=== PATIENT | male | born 1930 | race Caucasian/White ===

== ENCOUNTER 2018-09-08 11:46 | Observation (INO) ==
[2018-09-08] MEDS ORDERED: Sodium Chlor 0.9% Inj 500 ML IV.SIG SCH (12:00)
--- NOTE | 2018-09-08 12:04 | ED ---
HPI General Chief complaint: Diabetic Stated complaint: evac/diabetic Time Seen by Provider: 09/08/18 12:00 Source: patient and EMS Mode of arrival: EMS Limitations: no limitations History of Present Illness HPI narrative: 88-year-old male patient with a history of diabetes currently on insulin, presents to the ER today brought in by EMS after his states that last night his blood sugars dropped to 40 and she had fed him a full meal, and then this morning his blood sugar was over 500, she had given him 8 units of Humalog insulin at 8 AM and she states that the blood sugars are not going down and she was worried. Patient has been complaining on and off intermittently of some dizziness but states that he feels fine currently. He has not been sick, he denies any fevers, vomiting, or any other symptoms. He had eaten a normal full meal for dinner last night. Related Data Home Medications Medication Instructions Recorded Confirmed aliskiren [Tekturna] 150 mg PO DAILY 09/08/18 09/08/18 amlodipine 5 mg PO DAILY 09/08/18 09/08/18 aspirin 325 mg PO DAILY 09/08/18 09/08/18 atorvastatin 80 mg PO DAILY 09/08/18 09/08/18 hydrochlorothiazide 12.5 mg PO DAILY 09/08/18 09/08/18 insulin glargine [Lantus U-100 20 unit SUBCUT DAILY 09/08/18 09/08/18 Insulin] isosorbide dinitrate 20 mg PO BID 09/08/18 09/08/18 lisinopril 40 mg PO DAILY 09/08/18 09/08/18 metoprolol succinate 12.5 mg PO DAILY 09/08/18 09/08/18 pramipexole 4.5 mg PO DAILY 09/08/18 09/08/18 ranitidine HCl 300 mg PO BID 09/08/18 09/08/18 rivastigmine tartrate 6 mg PO BID 09/08/18 09/08/18 Allergies Allergy/AdvReac Type Severity Reaction Status Date / Time No Known Allergies Allergy Verified 09/08/18 13:01 Review of Systems ROS: all other systems reviewed are negative PMFSH History History Provided By: Patient Medical History Medical History Diabetes (Acute) Hypertension (Acute) GERD (gastroesophageal reflux disease) (Acute) Surgical History Surgical History History of heart artery stent (Acute) Social History Social History Smoking Status: Never smoker How Often Do You Have a Drink Containing Alcohol: Never Recent Travel in [facility] within the Last 8 Weeks: No Recent Out of Country Travel within the Last 8 Weeks: No Exam Narrative Exam Narrative: GENERAL: Well-developed elderly male patient currently in mild distress. Awake and oriented x3. SKIN: Focused skin assessment warm/dry. HEAD: Atraumatic. Normocephalic. EYES: Pupils equal and round. No scleral icterus. No injection or drainage. ENT: No nasal bleeding or discharge. Mucous membranes pink and moist. NECK: Trachea midline. No JVD. CARDIOVASCULAR: Regular rate and rhythm. No murmur appreciated. RESPIRATORY: No accessory muscle use. Clear to auscultation. Breath sounds equal bilaterally. GASTROINTESTINAL: Abdomen soft, non-tender, nondistended. Hepatic and splenic margins not palpable. MUSCULOSKELETAL: No obvious deformities. No clubbing. No cyanosis. No edema. NEUROLOGICAL: Awake and alert. No obvious cranial nerve deficits. Motor grossly within normal limits. Normal speech. No pronator drift. PSYCHIATRIC: Appropriate mood and affect; insight and judgment normal. Course Initial Documented Vital Signs Temperature 97.7 F 09/08/18 11:53 Pulse Rate 83 09/08/18 11:53 Respiratory Rate 20 09/08/18 11:53 Blood Pressure 164/72 H 09/08/18 11:53 Pulse Oximetry 95 09/08/18 11:53 Last Documented Vital Signs Temperature 97.7 F 09/08/18 11:53 Pulse Rate 70 09/08/18 13:30 Respiratory Rate 16 09/08/18 13:30 Blood Pressure 137/57 L 09/08/18 13:30 Pulse Oximetry 97 09/08/18 13:30 Medical Decision Making MDM Narrative Medical decision making narrative: Patient's lab work is showing some mild increase and creatinine, possibly secondary to dehydration. He had been given 500 cc of IV fluids and p.o. fluids as well in the ER. His glucose level is 650 and IV insulin was given as well. Troponins returned mildly elevated. Patient is not having chest pains. EKG does show a left bundle branch block with some ST depressions and 2 and lateral leads. No ST elevations were identified. And at this point, my plan would be to admit the patient for further evaluation. Case is discussed with Dr. Rosario for admission. I was able to talk to Dr. Delong at 2 PM, and he states that he will see the patient and leave a consult note. At this point, he would not add anything further. Medical Screen Exam Complete: Yes Emergency Medical Condition: Yes Differential Diagnosis Differential Diagnosis: Overmedication versus dehydration versus renal clearance issues Lab Data Lab results reviewed: Yes I reviewed the patient's lab results. Result diagrams: 09/08/18 12:16 09/08/18 12:16 Lab Results 09/08/18 09/08/18 09/08/18 Range/Units 11:59 12:16 12:16 CBC w Diff Auto diff final WBC 12.0 H (4.0-11.0) th/mm3 RBC 4.31 L (4.50-5.90) mil/mm3 Hgb 13.9 (13.0-17.0) gm/dL Hct 41.4 (39.0-51.0) % MCV 96.1 (80.0-100.0) fL MCH 32.3 (27.0-34.0) pg MCHC 33.6 (32.0-36.0) % RDW 12.6 (11.6-17.2) % Plt Count 155 (150-450) th/mm3 MPV 10.0 (7.0-11.0) fL Neut % (Auto) 85.2 H (16.0-70.0) % Lymph % (Auto) 5.9 L (9.0-44.0) % Baker % (Auto) 7.9 (0.0-8.0) % Eos % (Auto) 0.1 (0.0-4.0) % Baso % (Auto) 0.9 (0.0-2.0) % Neut # (Auto) 10.2 H (1.8-7.7) th/mm3 Lymph # (Auto) 0.7 L (1.0-4.8) th/mm3 Baker # (Auto) 1.0 H (0.0-0.9) th/mm3 Eos # (Auto) 0.0 (0.0-0.4) th/mm3 Baso # (Auto) 0.1 (0.0-0.2) th/mm3 WBC Differential . Differential Comment . Sodium 136 (136-145) meq/L Potassium 4.7 (3.5-5.1) meq/L Chloride 102 (98-107) meq/L Carbon Dioxide 21.8 (21.0-32.0) meq/L Anion Gap 12 (5-15) meq/L BUN 39 H (7-18) mg/dL Creatinine 1.60 H (0.60-1.30) mg/dL Estimated GFR 41 L (>89) mL/min POC Glucose Greater than 600 H* (68-110) mg/dl Random Glucose 654 H* (74-106) mg/dL Calcium 8.2 L (8.5-10.1) mg/dL Total Bilirubin 0.5 (0.2-1.0) mg/dL AST 15 (15-37) U/L ALT 20 (12-78) U/L Alkaline Phosphatase 72 (45-117) U/L Troponin I 0.18 H (0.02-0.05) ng/mL Total Protein 6.7 (6.4-8.2) g/dL Albumin 3.5 (3.4-5.0) g/dL Ur Collection Type Urine Color (Yellw/Straw) Urine Clarity (Clear) Urine pH (5.0-8.5) Ur Specific [place] (1.002-1.035) Urine Protein (Neg-Trace) mg/dL Urine Glucose (UA) (Negative) mg/dL Urine Ketones (Negative) mg/dL Urine Occult Blood (Negative) Urine Nitrate (Negative) Urine Bilirubin (Negative) Urine Urobilinogen (Less than 2) mg/dL Ur Leukocyte Esterase (Negative) Urine RBC (0-3) /hpf Ur Squamous Epith Cells (0-5) /hpf Micro UA Comment Ur Microscopic Review Urine Culture Comments 09/08/18 09/08/18 Range/Units 12:29 13:29 CBC w Diff WBC (4.0-11.0) th/mm3 RBC (4.50-5.90) mil/mm3 Hgb (13.0-17.0) gm/dL Hct (39.0-51.0) % MCV (80.0-100.0) fL MCH (27.0-34.0) pg MCHC (32.0-36.0) % RDW (11.6-17.2) % Plt Count (150-450) th/mm3 MPV (7.0-11.0) fL Neut % (Auto) (16.0-70.0) % Lymph % (Auto) (9.0-44.0) % Baker % (Auto) (0.0-8.0) % Eos % (Auto) (0.0-4.0) % Baso % (Auto) (0.0-2.0) % Neut # (Auto) (1.8-7.7) th/mm3 Lymph # (Auto) (1.0-4.8) th/mm3 Baker # (Auto) (0.0-0.9) th/mm3 Eos # (Auto) (0.0-0.4) th/mm3 Baso # (Auto) (0.0-0.2) th/mm3 WBC Differential Differential Comment Sodium (136-145) meq/L Potassium (3.5-5.1) meq/L Chloride (98-107) meq/L Carbon Dioxide (21.0-32.0) meq/L Anion Gap (5-15) meq/L BUN (7-18) mg/dL Creatinine (0.60-1.30) mg/dL Estimated GFR (>89) mL/min POC Glucose Greater than 600 H* (68-110) mg/dl Random Glucose (74-106) mg/dL Calcium (8.5-10.1) mg/dL Total Bilirubin (0.2-1.0) mg/dL AST (15-37) U/L ALT (12-78) U/L Alkaline Phosphatase (45-117) U/L Troponin I (0.02-0.05) ng/mL Total Protein (6.4-8.2) g/dL Albumin (3.4-5.0) g/dL Ur Collection Type Clean catch Urine Color Yellow (Yellw/Straw) Urine Clarity Clear (Clear) Urine pH 5.5 (5.0-8.5) Ur Specific [place] Less/equal 1.005 (1.002-1.035) Urine Protein Negative (Neg-Trace) mg/dL Urine Glucose (UA) 1000 or greater H (Negative) mg/dL Urine Ketones Negative (Negative) mg/dL Urine Occult Blood Large H (Negative) Urine Nitrate Negative (Negative) Urine Bilirubin Negative (Negative) Urine Urobilinogen 0.2 (Less than 2) mg/dL Ur Leukocyte Esterase Negative (Negative) Urine RBC 15-50 H (0-3) /hpf Ur Squamous Epith Cells 0-5 (0-5) /hpf Micro UA Comment Culture not ind Ur Microscopic Review Microscopic reviewed Urine Culture Comments Culture not ind ECG Data Attestation: I personally reviewed and interpreted this ECG as follows: Interpretation: EKG shows a sinus rhythm with a left bundle branch block with frequent PVCs, ventricular rate at 70 bpm. There are notable ST depressions in 2, V5 through V6. No signs of acute ST elevations. Discharge Plan Discharge Disposition Patient Disposition: 30 Still Patient Discharge Condition Condition: Stable Discharge Details Anticipated Discharge Date: 09/08/18 Diagnosis: Elevated troponin, Hyperglycemia Physicians Team ED Provider: Juliocesar Flores Primary Care Provider: Grover Green Attending Provider: Celso Rosario Status ED Status: Left Department Discharge Information Discharge Date/Time: 09/08/18 13:35
[2018-09-08 12:24] LABS: Baso # (Auto) 0.1 th/mm3 (0.0-0.2); Baso % (Auto) 0.9 % (0.0-2.0); Eos % (Auto) 0.1 % (0.0-4.0); Hematocrit 41.4 % (39.0-51.0); Hemoglobin 13.9 gm/dL (13.0-17.0); Lymph # (Auto) 0.7 th/mm3 (1.0-4.8); Lymph % (Auto) 5.9 % (9.0-44.0); Mean Corpuscular HGB Conc 33.6 % (32.0-36.0); Mean Corpuscular Hemoglobin 32.3 pg (27.0-34.0); Mean Corpuscular Volume 96.1 fL (80.0-100.0); Mono % (Auto) 7.9 % (0.0-8.0); Neut # (Auto) 10.2 th/mm3 (1.8-7.7); Neut % (Auto) 85.2 % (16.0-70.0); Platelet Count 155 th/mm3 (150-450); Red Blood Count 4.31 mil/mm3 (4.50-5.90); Red Cell Distribution Width 12.6 % (11.6-17.2)
[2018-09-08 12:37] LABS: Chloride 102 meq/L (98-107); Potassium 4.7 meq/L (3.5-5.1); Sodium 136 meq/L (136-145)
[2018-09-08 12:40] LABS: Albumin 3.5 g/dL (3.4-5.0); Anion Gap 12 meq/L (5-15); Calcium 8.2 mg/dL (8.5-10.1); Carbon Dioxide 21.8 meq/L (21.0-32.0)
[2018-09-08 12:40] LABS: Bilirubin,Urine Negative (Negative); Clarity,Urine Clear (Clear); Color,Urine Yellow (Yellw/Straw); Leukocyte Esterase,Urine Negative (Negative); Nitrite,Urine Negative (Negative); PH,Urine 5.5 (5.0-8.5); Specific Gravity,Urine Less/Equal 1.005 (1.002-1.035); Urobilinogen,Urine 0.2 mg/dL (Less than 2)
[2018-09-08 12:41] LABS: Blood Urea Nitrogen 39 mg/dL (7-18)
[2018-09-08 12:43] LABS: Alanine Aminotransferase 20 U/L (12-78)
[2018-09-08 12:44] LABS: Aspartate Aminotransferase 15 U/L (15-37); Glomerular Filtration Rate 41 mL/min (>89)
[2018-09-08 12:45] LABS: Total Protein 6.7 g/dL (6.4-8.2)
[2018-09-08 12:51] LABS: Squamous Epithelial Cell,Urine 0-5 /hpf (0-5)
[2018-09-08 12:53] LABS: Alkaline Phosphatase 72 U/L (45-117); Troponin I 0.18 ng/mL (0.02-0.05)
[2018-09-08 12:54] LABS: Glucose,Random 654 mg/dL (74-106)
[2018-09-08] MEDS ORDERED: Acetaminophen 325 MG Tablet PO PRN (14:03)
[2018-09-08] MEDS ORDERED: Dextrose 50% in Water 50 ML Vial IV.PUSH PRN (14:10)
--- NOTE | 2018-09-08 15:15 | P.HP ---
History of Present Illness Primary Care Physician: Grover Green MD Chief Complaint: Labile Blood glucose History of Present Illness: 88-year-old male for past medical history of diabetes type 2 came to the ED for evaluation of labile blood glucose. Apparently, patient has a blood glucose reading of 40 for which he was given full crackers, orange juice. However this a.m. when patient awoke, a blood glucose read over 500 and was treated with 8 units of Humalog at 8 AM and decision was made to bring patient to the ED secondary to intermittent dizziness. Per patient's , he may have mistakenly taken his Basal insulin instead of his short acting last night. While in the ED, patient was found to have elevated cardiac enzyme however he denies any chest pain or shortness of breath. 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 Denies any GI bleed. - Diagnosis (1) Elevated troponin (2) Hyperglycemia Review of Systems All other systems reviewed negative except as [facility] - History History Provided By: Patient - Medical History Medical History: Medical History (Last Updated 09/08/18 @ 12:23 by Collins Dukes RN) Diabetes Hypertension GERD (gastroesophageal reflux disease) - Surgical History Surgical History: Surgical History (Last Reviewed 09/08/18 @ 12:03 by Juliocesar Flores MD) History of heart artery stent - Family History Family History: Family History (Last Updated 09/08/18 @ 15:11 by Celso Rosario MD) Other Heart disease - Tobacco History Smoking Status: Never smoker - Alcohol History How Often Do You Have a Drink Containing Alcohol: Never - Travel History Recent Travel in the [place] Within the Last 8 Weeks: No Recent Travel Out of the Country Within the Last 8 Weeks: No - Immunization History Tetanus Immunization: Unsure Medications and Allergies Active Medications: Active Medications Acetaminophen (Tylenol) 650 mg PO Q4H PRN PRN Reason: Temp > 100.4 Al Hydroxide/Mg Hydroxide (Milk Of Radha Liq) 30 ml PO Q12H PRN PRN Reason: Mild Constipation Aliskiren (Tekturna) 150 mg PO DAILY [facility] Amlodipine Besylate (Norvasc) 5 mg PO DAILY [facility] Aspirin (Aspirin) 325 mg PO DAILY [facility] Atorvastatin Calcium (Lipitor) 80 mg PO DAILY [facility] Dextrose (D50w Vial) 50 ml IV.PUSH UNSCH PRN PRN Reason: PER HYPOGLYCEMIA PROTOCOL Glucagon (Glucagon Inj) 1 mg OTHER PRN PRN PRN Reason: for Hypoglycemia Protocol Sodium Chloride (Ns Inj) 500 mls @ 0 mls/hr IV.SIG BOLUS JAZIEL Last Infusion: 09/08/18 13:31 Dose: Infused Sodium Chloride (1/2 Normal Saline Inj) 1,000 mls @ 75 mls/hr IV.CONT .[id number] [facility] Insulin Aspart (Novolog Insulin Correctional Sugar Inj) 0 unit SQ ACHS [facility]; Protocol Insulin Detemir (Levemir Inj) 20 unit SQ DAILY [facility] Isosorbide Dinitrate (Isordil) 20 mg PO BID [facility] Metoprolol Succinate (Toprol Xl) 12.5 mg PO DAILY [facility] Ondansetron HCl (Zofran Inj) 4 mg IV.PUSH Q6H PRN PRN Reason: NAUSEA OR VOMITING Patient Own: ( Pramipexole E.R. [ Pramipexole] 4.5 Mg Tab) 0 each PO DAILY [facility] Patient Own: ( Rivastigmine Tartrate [ Rivastigmine Tartrate] 6 Mg) 0 each PO BID [facility] Sodium Chloride (Ns Flush) 2 ml IV.FLUSH PRN PRN PRN Reason: FLUSH AFTER USING IV ACCESS Allergies Allergy/AdvReac Type Severity Reaction Status Date / Time No Known Allergies Allergy Verified 09/08/18 13:01 Home Medications Medication Instructions Recorded Confirmed Type aliskiren [Tekturna] 150 mg PO DAILY 09/08/18 09/08/18 History amlodipine 5 mg PO DAILY 09/08/18 09/08/18 History aspirin 325 mg PO DAILY 09/08/18 09/08/18 History atorvastatin 80 mg PO DAILY 09/08/18 09/08/18 History hydrochlorothiazide 12.5 mg PO DAILY 09/08/18 09/08/18 History insulin glargine [Lantus U-100 20 unit SUBCUT DAILY 09/08/18 09/08/18 History Insulin] isosorbide dinitrate 20 mg PO BID 09/08/18 09/08/18 History lisinopril 40 mg PO DAILY 09/08/18 09/08/18 History metoprolol succinate 12.5 mg PO DAILY 09/08/18 09/08/18 History pramipexole 4.5 mg PO DAILY 09/08/18 09/08/18 History ranitidine HCl 300 mg PO BID 09/08/18 09/08/18 History rivastigmine tartrate 6 mg PO BID 09/08/18 09/08/18 History Exam Vital signs: Vital Signs 09/08/18 11:53 09/08/18 12:55 09/08/18 13:30 Temperature 97.7 F Pulse Rate 83 76 70 Respiratory Rate 20 16 16 Blood Pressure 164/72 H 137/57 L 137/57 L Pulse Oximetry 95 96 97 Intake & Output 09/07/18 09/08/18 09/08/18 18:59 06:59 18:59 Intake Total 500 / 500 Balance 500 / 500 Weight 65.317 kg Intake: IV 500 / 500 NS Inj 500 ML @ Wide Open IV. 500 / 500 SIG BOLUS [facility]AZIEL Rx#:[id number] Narrative: GENERAL: NAD SKIN: Warm and dry. HEAD: Atraumatic. Normocephalic. EYES: Pupils equal and round. No scleral icterus. No injection or drainage. ENT: No nasal bleeding or discharge. Mucous membranes pink and moist. NECK: Trachea midline. No JVD. CARDIOVASCULAR: Regular rate and rhythm. RESPIRATORY: No accessory muscle use. Clear to auscultation. Breath sounds equal bilaterally. GASTROINTESTINAL: Abdomen soft, non-tender, nondistended. Hepatic and splenic margins not palpable. MUSCULOSKELETAL: Extremities without clubbing, cyanosis, or edema. No obvious deformities. NEUROLOGICAL: Awake and alert. No obvious cranial nerve deficits. Motor grossly within normal limits. Five out of 5 muscle strength in the arms and legs. Normal speech. PSYCHIATRIC: Appropriate mood and affect; insight and judgment normal. Results - Labs CBC & Chem 7: 09/08/18 12:16 09/08/18 12:16 Labs: Laboratory Results - last 24 hr 09/08/18 09/08/18 09/08/18 11:59 12:16 12:16 CBC w Diff Auto diff final WBC 12.0 H RBC 4.31 L Hgb 13.9 Hct 41.4 MCV 96.1 MCH 32.3 MCHC 33.6 RDW 12.6 Plt Count 155 MPV 10.0 Neut % (Auto) 85.2 H Lymph % (Auto) 5.9 L [place] % (Auto) 7.9 Eos % (Auto) 0.1 Baso % (Auto) 0.9 Neut # (Auto) 10.2 H Lymph # (Auto) 0.7 L [place] # (Auto) 1.0 H Eos # (Auto) 0.0 Baso # (Auto) 0.1 WBC Differential . Differential Comment . Sodium 136 Potassium 4.7 Chloride 102 Carbon Dioxide 21.8 Anion Gap 12 BUN 39 H Creatinine 1.60 H Estimated GFR 41 L POC Glucose Greater than 600 H* Random Glucose 654 H* Calcium 8.2 L Total Bilirubin 0.5 AST 15 ALT 20 Alkaline Phosphatase 72 Troponin I 0.18 H Total Protein 6.7 Albumin 3.5 Ur Collection Type Urine Color Urine Clarity Urine pH Ur Specific [place] Urine Protein Urine Glucose (UA) Urine Ketones Urine Occult Blood Urine Nitrate Urine Bilirubin Urine Urobilinogen Ur Leukocyte Esterase Urine RBC Ur Squamous Epith Cells Micro UA Comment Ur Microscopic Review Urine Culture Comments 09/08/18 09/08/18 12:29 13:29 CBC w Diff WBC RBC Hgb Hct MCV MCH MCHC RDW Plt Count MPV Neut % (Auto) Lymph % (Auto) [place] % (Auto) Eos % (Auto) Baso % (Auto) Neut # (Auto) Lymph # (Auto) [place] # (Auto) Eos # (Auto) Baso # (Auto) WBC Differential Differential Comment Sodium Potassium Chloride Carbon Dioxide Anion Gap BUN Creatinine Estimated GFR POC Glucose Greater than 600 H* Random Glucose Calcium Total Bilirubin AST ALT Alkaline Phosphatase Troponin I Total Protein Albumin Ur Collection Type Clean catch Urine Color Yellow Urine Clarity Clear Urine pH 5.5 Ur Specific [place] Less/equal 1.005 Urine Protein Negative Urine Glucose (UA) 1000 or greater H Urine Ketones Negative Urine Occult Blood Large H Urine Nitrate Negative Urine Bilirubin Negative Urine Urobilinogen 0.2 Ur Leukocyte Esterase Negative Urine RBC 15-50 H Ur Squamous Epith Cells 0-5 Micro UA Comment Culture not ind Ur Microscopic Review Microscopic reviewed Urine Culture Comments Culture not ind Caprini VTE Risk Assessment Caprini VTE Risk Assessment: Moderate/High Risk (score >= 2) Caprini Risk Assessment Model: Point Value = 1 Point Value = 2 Point Value = 3 Point Value = 5 Age 41-60 Minor surgery BMI > 25 kg/m2 Swollen legs Varicose veins or History of unexplained or recurrent spontaneous Oral contraceptives or hormone replacement Sepsis (< 1 month) Serious lung disease, including pneumonia (< 1 month) Abnormal pulmonary function Acute myocardial infarction Congestive heart failure (< 1 month) History of inflammatory bowel disease Medical patient at bed rest Age 61-74 Arthroscopic surgery Major open surgery (> 45 min) Laparoscopic surgery (> 45 min) Malignancy Confined to bed (> 72 hours) Immobilizing plaster cast Central venous access Age >= 75 History of VTE Family history of VTE Factor V Leiden Prothrombin [id number] Lupus anticoagulant Anticardiolipin antibodies Elevated serum homocysteine Heparin-induced thrombocytopenia Other congenital or acquired thrombophilia Stroke (< 1 month) Elective arthroplasty Hip, pelvis, or leg fracture Acute spinal cord injury (< 1 month) Prophylaxis Regimen: Total Risk Factor Score Risk Level Prophylaxis Regimen 0-1 Low Early ambulation 2 Moderate Order ONE of the following: *Sequential Compression Device (SCD) *Heparin 5000 units SQ BID 3-4 Higher Order ONE of the following medications: *Heparin 5000 units SQ TID *Enoxaparin/Lovenox 40 mg SQ daily (WT < 150 kg, CrCl > 30 mL/min) *Enoxaparin/Lovenox 30 mg SQ daily (WT < 150 kg, CrCl > 10-29 mL/min) *Enoxaparin/Lovenox 30 mg SQ BID (WT < 150 kg, CrCl > 30 mL/min) AND/OR *Sequential Compression Device (SCD) 5 or more Highest Order ONE of the following medications: *Heparin 5000 units SQ TID (Preferred with Epidurals) *Enoxaparin/Lovenox 40 mg SQ daily (WT < 150 kg, CrCl > 30 mL/min) *Enoxaparin/Lovenox 30 mg SQ daily (WT < 150 kg, CrCl > 10-29 mL/min) *Enoxaparin/Lovenox 30 mg SQ BID (WT < 150 kg, CrCl > 30 mL/min) AND *Sequential Compression Device (SCD) Assessment and Plan - Assessment (1) Elevated troponin Code(s): R74.8 - Abnormal levels of other serum enzymes Status: Acute (2) Hyperglycemia Code(s): R73.9 - Hyperglycemia, unspecified Status: Acute - Plan 88 years with Diabetes type 2, uncontrolled blood glucose Hyperglycemia Will correct blood glucose however very slowly Start high insulin sliding scale and resume basal insulin Consider insulin drip if no improvement Elevated troponin I Denies any chest pain however will rule out ACS per protocol cardiac enzyme and EKGs Cardiology consultation pending Check 2D echo Acute renal failure Start gentle IV fluid hydration and monitor BUN and creatinine Avoid all nephrotoxic drug Leukocytosis Monitor CBC Other chronic medical conditions Resume outpatient medications DVT prophylaxis: Bilateral SCDs Code Status: Full code Discussed Condition With: Patient, , ED physician
--- NOTE | 2018-09-08 15:21 | ECG ---
Date Performed: 09/08/2018 Time Performed: 12:59:35 PTAGE: 88 years EKG: Sinus rhythm WITH FIRST DEGREE AV BLOCK WITH FREQUENT VENTRICULAR PREMATURE COMPLEXES LEFT BUNDLE BRANCH BLOCK AB NORMAL ECG PREVIOUS TRACING : 06/02/2015 00.12 Compared to previous tracing, left bundle branch block diandra tylor and PVCs are now evident. DOCTOR: George Nuñez Interpretating Date/Time 09/08/2018 15:20:21
--- NOTE | 2018-09-08 16:38 | P.CONCA ---
History of Present Illness Service: Cardiology Consult date: 09/08/18 Reason for Consult: Elevated Troponin Primary Care Provider: Grover Green MD Family Provider: Grover Green MD Chief Complaint: Labile Blood glucose History of Present Illness: This is a very pleasant 88 year old male patient well known to practice who was admitted to hospital with elevated glucose. He was complaining of some dizziness which he thinks was due to his low glucose last night, and elevated glucose today (over 500). He denies any chest pain, shortness of breath, palpitations, orthopnea, fatigue, claudication. States that he has been able to walk on treadmill for 46 minutes twice weekly in addition to golfing without any chest pain or shortness of breath. His Troponin in Er was .18 and he does have degree of renal insufficiency with creatinine of 1.6. He was seen with at bedside and both deny any chest pain. He does have known CAD with cardiac catheterization June 2015 with Mild disease to left main and mid to moderate LAD disease, mild to moderate RI disease witih patent stent. LCX with patent stent with jailed minute branch with 80% ostial disease. Significant disease of PDA of RCA (small vessel 1 mm) mild disease of RCA. Last stress test was nurclear June 2018 with LVEF 58% with small basal inferior wall scar. Mild to moderate lateral wall ischemia. Review of Systems Constitutional: Denies fatigue, Denies lack of energy Eyes: Denies blurry vision Ears, Nose, Mouth, and Throat: Reports dizziness Cardiovascular: Denies chest pain, Denies excessive sweating, Denies leg swelling, Denies shortness of breath with activity Respiratory: Denies cough, Denies shortness of breath Gastrointestinal: Denies abdominal pain Skin/Breast: Denies change in skin color, Denies unusual bruising Neurologic: Denies fainting Endocrine: Reports increased thirst PMFSH - History History Provided By: Patient - Medical History Medical History: Medical History (Last Reviewed 09/09/18 @ 07:34 by Iraj Montes De Oca) Diabetes GERD (gastroesophageal reflux disease) Hypertension - Surgical History Surgical History: Surgical History (Last Reviewed 09/09/18 @ 07:34 by Iraj Montes De Oca) History of heart artery stent - Family History Family History: Family History (Last Updated 09/08/18 @ 15:11 by Celso Rosario MD) Other Heart disease - Tobacco History Smoking Status: Never smoker - Alcohol History How Often Do You Have a Drink Containing Alcohol: Never - Travel History Recent Travel in the [place] Within the Last 8 Weeks: No Recent Travel Out of the Country Within the Last 8 Weeks: No - Immunization History Tetanus Immunization: Unsure Medications and Allergies Allergies Allergy/AdvReac Type Severity Reaction Status Date / Time No Known Allergies Allergy Verified 09/08/18 13:01 Home Medications Medication Instructions Recorded Confirmed Type aliskiren [Tekturna] 150 mg PO DAILY 09/08/18 09/08/18 History amlodipine 5 mg PO DAILY 09/08/18 09/08/18 History aspirin 325 mg PO DAILY 09/08/18 09/08/18 History atorvastatin 80 mg PO DAILY 09/08/18 09/08/18 History hydrochlorothiazide 12.5 mg PO DAILY 09/08/18 09/08/18 History insulin glargine [Lantus U-100 20 unit SUBCUT DAILY 09/08/18 09/08/18 History Insulin] isosorbide dinitrate 20 mg PO BID 09/08/18 09/08/18 History lisinopril 40 mg PO DAILY 09/08/18 09/08/18 History metoprolol succinate 12.5 mg PO DAILY 09/08/18 09/08/18 History pramipexole 0.5 mg PO DAILY 09/08/18 09/09/18 History ranitidine HCl 300 mg PO BID 09/08/18 09/08/18 History rivastigmine tartrate 6 mg PO BID 09/08/18 09/08/18 History pramipexole 0.5 mg PO DAILY 09/09/18 09/09/18 History Active Medications: Active Medications Acetaminophen (Tylenol) 650 mg PO Q4H PRN PRN Reason: Temp > 100.4 Al Hydroxide/Mg Hydroxide (Milk Of Magnesia Liq) 30 ml PO Q12H PRN PRN Reason: Mild Constipation Aliskiren (Tekturna) 150 mg PO DAILY [facility] Amlodipine Besylate (Norvasc) 5 mg PO DAILY [facility] Aspirin (Aspirin) 325 mg PO DAILY [facility] Atorvastatin Calcium (Lipitor) 80 mg PO DAILY [facility] Dextrose (D50w Vial) 50 ml IV.PUSH UNSCH PRN PRN Reason: PER HYPOGLYCEMIA PROTOCOL Glucagon (Glucagon Inj) 1 mg OTHER PRN PRN PRN Reason: for Hypoglycemia Protocol Sodium Chloride (Ns Inj) 500 mls @ 0 mls/hr IV.SIG BOLUS [facility] Last Infusion: 09/08/18 13:31 Dose: Infused Sodium Chloride (1/2 Normal Saline Inj) 1,000 mls @ 75 mls/hr IV.CONT .[id number] [facility] Insulin Aspart (Novolog Insulin Correctional Sugar Inj) 0 unit SQ ACHS [facility]; Protocol Insulin Detemir (Levemir Inj) 20 unit SQ DAILY [facility] Isosorbide Dinitrate (Isordil) 20 mg PO BID [facility] Metoprolol Succinate (Toprol Xl) 12.5 mg PO DAILY [facility] Ondansetron HCl (Zofran Inj) 4 mg IV.PUSH Q6H PRN PRN Reason: NAUSEA OR VOMITING Patient Own: ( Pramipexole E.R. [ Pramipexole] 4.5 Mg Tab) 0 each PO DAILY [facility] Patient Own: ( Rivastigmine Tartrate [ Rivastigmine Tartrate] 6 Mg) 0 each PO BID [facility] Sodium Chloride (Ns Flush) 2 ml IV.FLUSH PRN PRN PRN Reason: FLUSH AFTER USING IV ACCESS Exam Vital signs: Vital Signs 09/08/18 11:53 09/08/18 12:55 09/08/18 13:30 Temperature 97.7 F Pulse Rate 83 76 70 Respiratory Rate 20 16 16 Blood Pressure 164/72 H 137/57 L 137/57 L Pulse Oximetry 95 96 97 Intake & Output 09/07/18 09/08/18 09/08/18 18:59 06:59 18:59 Intake Total 500 / 500 Balance 500 / 500 Weight 65.317 kg Intake: IV 500 / 500 NS Inj 500 ML @ Wide Open IV. 500 / 500 SIG BOLUS [facility] Rx#:[id number] - Constitutional no acute distress - Routine HEENT Exam Head: Present: normocephalic, atraumatic Eye: Present: EOMI ENT: Present: mucous membranes moist - Routine Neck Exam Present: supple. Absent: JVD, carotid bruit - Routine Chest/Breast/Axilla Exam Chest wall: Absent: tenderness - Routine Respiratory Exam Present: CTA bilaterally - Routine Cardiovascular Exam Present: S1, S2, murmur, gallop Comments: 2/6 systolic murmur heard over precordium, s4 gallop - Routine Abdominal Exam Present: soft, normoactive bowel sounds - Routine Extremities Exam Present: pulses intact, normal capillary refill. Absent: edema - Routine Skin Exam Present: intact, dry, warm - Routine Neurological Exam Present: alert, oriented X3, CN II-XII intact Results 09/09/18 05:35 09/09/18 05:35 Cardiac Enzymes 09/08/18 Range/Units 12:16 AST 15 (15-37) U/L Troponin I 0.18 H (0.02-0.05) ng/mL CBC 09/08/18 Range/Units 12:16 WBC 12.0 H (4.0-11.0) th/mm3 RBC 4.31 L (4.50-5.90) mil/mm3 Hgb 13.9 (13.0-17.0) gm/dL Hct 41.4 (39.0-51.0) % Plt Count 155 (150-450) th/mm3 Neut # (Auto) 10.2 H (1.8-7.7) th/mm3 Lymph # (Auto) 0.7 L (1.0-4.8) th/mm3 [place] # (Auto) 1.0 H (0.0-0.9) th/mm3 Eos # (Auto) 0.0 (0.0-0.4) th/mm3 Baso # (Auto) 0.1 (0.0-0.2) th/mm3 Comprehensive Metabolic Panel 09/08/18 Range/Units 12:16 Sodium 136 (136-145) meq/L Potassium 4.7 (3.5-5.1) meq/L Chloride 102 (98-107) meq/L Carbon Dioxide 21.8 (21.0-32.0) meq/L BUN 39 H (7-18) mg/dL Creatinine 1.60 H (0.60-1.30) mg/dL Calcium 8.2 L (8.5-10.1) mg/dL AST 15 (15-37) U/L ALT 20 (12-78) U/L Alkaline Phosphatase 72 (45-117) U/L Total Protein 6.7 (6.4-8.2) g/dL Albumin 3.5 (3.4-5.0) g/dL Intake and Output 09/08/18 09/08/18 09/08/18 06:59 14:59 22:59 Intake Total 500 / 500 Balance 500 / 500 Intake: IV 500 / 500 NS Inj 500 ML @ Wide Open IV. 500 / 500 SIG BOLUS [facility] Rx#:[id number] Other: Weight 65.317 kg Patient Weight 09/09/18 06:59 Weight 65.317 kg - Imaging and Cardiology EKG results: report reviewed, image reviewed Assessment and Plan - Plan 1. Elevated Troponin-no acute changes in EKG. NO EKG changes or chest discomfort... ambulate and if asymptomatic further W/U as outpt. 2. Hypertension-continue amlodipine, asa, HCTZ, isosorbide, lisinopril, metoprolol 3. Hyperlipidemia-continue atorvastatin Thank you very much for this consultation. Discussed Condition With: , patient, and RN
[2018-09-08] MEDS: Sodium Chloride 0.45 % Inj 1,000 ML IV.CONT SCH (17:14)
[2018-09-08] MEDS: Insulin NovoLOG Aspart Correctional Sugar Inj SQ SCH ×2 (17:56→21:53)
--- NOTE | 2018-09-08 18:28 | ECHRPT ---
Indication: Shortness of Breath CONCLUSIONS The left ventricular systolic function is normal with an estimated ejection fraction in the range of 55-60%. Doppler parameters are consistent with impaired left ventricular relaxtion (grade 1 diastolic dysfun ction). Anterior mitral leaflet appears to buckle, but not enough to fit criteria for prolapse. Mild mitral valve regurgitation. Trace aortic valve regurgitation. There is trace tricuspid valve regurgitation. BP: / HR: Rhythm: MEASUREMENTS (Male / Female) Normal Values Technical Quality:Fair 2D ECHO LV Diastolic Diameter PLAX 5.3 cm 4.2 - 5.9 / 3.9 - 5.3 cm LV Systolic Diameter PLAX 3.4 cm IVS Diastolic Thickness 1.0 cm 0.6 - 1.0 / 0.6 - 0.9 cm LVPW Diastolic Thickness 1.1 cm 0.6 - 1.0 / 0.6 - 0.9 cm LV Relative Wall Thickness 0.4 RV Internal Dim ED PLAX 2.9 cm LVOT Diameter 2.1 cm Aortic Root Diameter 2.7 cm LA Systolic Diameter LX 3.6 cm 3.0 - 4.0 / 2.7 - 3.8 cm DOPPLER AV Peak Velocity 213.0 cm/s AV Peak Gradient 18.1 mmHg AV Mean Gradient 9.0 mmHg AV Velocity Time Integral 44.5 cm AI Peak Velocity 279.0 cm/s AI Peak Gradient 31.1 mmHg AI Pressure Half Time 460.0 ms LVOT Peak Velocity 117.0 cm/s LVOT Peak Gradient 5.5 mmHg AV Area Cont Eq pk 1.9 cm Mitral E Point Velocity 102.0 cm/s Mitral A Point Velocity 178.0 cm/s Mitral E to A Ratio 0.6 LV E' Lateral Velocity 9.1 cm/s Mitral E to LV E' Lateral Ratio 11.2 LV E' Septal Velocity 7.1 cm/s Mitral E to LV E' Septal Ratio 14.3 TR Peak Velocity 274.0 cm/s TR Peak Gradient 30.0 mmHg Right Atrial Pressure 10.0 mmHg Pulmonary Artery Systolic Pressu 40.0 mmHg Right Ventricular Systolic Press 40.0 mmHg PV Peak Velocity 113.0 cm/s PV Peak Gradient 5.1 mmHg FINDINGS LEFT VENTRICLE Normal left ventricular size. Wall thickness is normal. The left ventricular systolic function is normal with an estimated ejection fraction in the range of 55-60%. Doppler parameters are consistent with impaired left ventricular relaxtion (grade 1 diastolic dysfun ction). RIGHT VENTRICLE Normal right ventricular size and systolic function. LEFT ATRIUM The left atrial size is normal. RIGHT ATRIUM The right atrial size is normal. ATRIAL SEPTUM Normal atrial septal thickness without atrial level shunting by limited color doppler interrogation. AORTA The aortic root and proximal ascending aorta are normal in size on limited imaging. MITRAL VALVE Structurally normal mitral valve. Mild mitral valve regurgitation. Mitral annular calcification is present. Anterior leaflet appears to buckle, but does not fit criteria for prolapse AORTIC VALVE Trileaflet aortic valve. Aortic valve sclerosis is present. Trace aortic valve regurgitation. TRICUSPID VALVE Grossly normal There is trace tricuspid valve regurgitation. The estimated pulmonary arterial pressure is 40 mmHg. PULMONARY VALVE No pulmonary valve regurgitation or stenosis. VESSELS The inferior vena cava is normal in size. PERICARDIUM No pericardial effusion. Vinod Valdez DO (Electronically Signed) Final Date:08 September 2018 18:27
[2018-09-08 18:40] LABS: Troponin I 0.19 ng/mL (0.02-0.05)
--- NOTE | 2018-09-08 19:59 | ECG ---
Date Performed: 09/08/2018 Time Performed: 18:03:39 PTAGE: 88 years EKG: Sinus rhythm WITH FIRST DEGREE AV BLOCK LEFT BUNDLE BRANCH BLOCK ABNORMAL ECG PREVIOUS TRACING : 09/08/2018 12.59 Compared to previous tracing, heart rate has increased, PVC s are no longer present. DOCTOR: George Nuñez Interpretating Date/Time 09/08/2018 19:58:15
[2018-09-08] MEDS ORDERED: RIVASTIGMINE TARTRATE 6 MG PO SCH (21:00)
[2018-09-09] MEDS: Sodium Chloride 0.45 % Inj 1,000 ML IV.CONT SCH (04:58)
[2018-09-09 07:10] LABS: Baso # (Auto) 0.1 th/mm3 (0.0-0.2); Baso % (Auto) 0.6 % (0.0-2.0); Eos # (Auto) 0.2 th/mm3 (0.0-0.4); Hematocrit 39.9 % (39.0-51.0); Hemoglobin 13.6 gm/dL (13.0-17.0); Lymph # (Auto) 1.7 th/mm3 (1.0-4.8); Lymph % (Auto) 14.1 % (9.0-44.0); Mean Corpuscular Hemoglobin 31.7 pg (27.0-34.0); Mean Corpuscular Volume 93.3 fL (80.0-100.0); Mean Platelet Volume 11.1 fL (7.0-11.0); Neut % (Auto) 75.3 % (16.0-70.0); Platelet Count 192 th/mm3 (150-450); Red Blood Count 4.28 mil/mm3 (4.50-5.90); Red Cell Distribution Width 13.1 % (11.6-17.2)
[2018-09-09 07:16] LABS: Alanine Aminotransferase 19 U/L (12-78); Albumin 3.5 g/dL (3.4-5.0); Alkaline Phosphatase 65 U/L (45-117); Anion Gap 10 meq/L (5-15); Aspartate Aminotransferase 16 U/L (15-37); Blood Urea Nitrogen 28 mg/dL (7-18); Calcium 8.5 mg/dL (8.5-10.1); Carbon Dioxide 26.3 meq/L (21.0-32.0); Chloride 102 meq/L (98-107); Glomerular Filtration Rate 57 mL/min (>89); Glucose,Random 226 mg/dL (74-106); Potassium 3.9 meq/L (3.5-5.1); Sodium 138 meq/L (136-145); Total Protein 6.8 g/dL (6.4-8.2)
[2018-09-09] MEDS: Insulin NovoLOG Aspart Correctional Sugar Inj SQ SCH ×2 (08:25→12:18)
[2018-09-09 08:34] VITALS: RESP 16
[2018-09-09] MEDS ORDERED: Lisinopril 20 MG Tablet PO SCH (09:00)
[2018-09-09] MEDS ORDERED: amLODIPine 5 MG Tablet PO SCH (09:00)
[2018-09-09] MEDS ORDERED: PRAMIPEXOLE PO SCH (09:00)
[2018-09-09] MEDS ORDERED: Aspirin 325 MG Tablet PO SCH (09:00)
[2018-09-09] MEDS ORDERED: Insulin Detemir Inj 1,000 UNIT/10 ML Vial SQ SCH (09:00)
[2018-09-09] MEDS ORDERED: hydroCHLOROthiazide 25 MG Tablet PO SCH (09:00)
--- NOTE | 2018-09-09 10:04 | P.PN ---
Subjective Interval history: Follow-up Diabetes type 2, uncontrolled blood glucose/Hyperglycemia/Elevated Troponin I September 09, 2018-Patient seen and examined,complains of poorly controlled restless leg syndrome; blood glucose better control Physical Exam Vital signs: Vital Signs 09/08/18 11:53 09/08/18 12:55 09/08/18 13:30 Temperature 97.7 F Pulse Rate 83 76 70 Respiratory Rate 20 16 16 Blood Pressure 164/72 H 137/57 L 137/57 L Pulse Oximetry 95 96 97 09/08/18 13:45 09/08/18 16:00 09/08/18 22:00 Temperature 97.6 F 96.1 F L 97.2 F L Pulse Rate 69 61 84 Respiratory Rate 20 20 18 Blood Pressure 186/73 H 138/63 132/90 Pulse Oximetry 97 97 09/09/18 00:00 09/09/18 05:44 09/09/18 08:00 Temperature 98.7 F 97.2 F L Pulse Rate 81 73 Respiratory Rate 21 20 16 Blood Pressure 121/59 L 137/63 Pulse Oximetry 92 L 97 Intake & Output 09/08/18 09/09/18 09/09/18 18:59 06:59 18:59 Intake Total 961 / 961 1240 / 1240 Balance 961 / 961 1240 / 1240 Weight 65.317 kg 72 kg Intake: IV 500 / 500 1000 / 1000 1/2 Normal Saline Inj 1,000 ML 1000 / 1000 @ 75 mls/hr IV.CONT .[id number] [facility] Rx#:[id number] NS Inj 500 ML @ Wide Open IV. 500 / 500 SIG BOLUS [facility] Rx#:[id number] Oral 461 / 461 240 / 240 Other: # Voids 4 Date of Last Bowel Movement 09/08/18 # Bowel Movements 0 Narrative: GENERAL: NAD SKIN: Warm and dry. HEAD: Atraumatic. Normocephalic. EYES: Pupils equal and round. No scleral icterus. No injection or drainage. ENT: No nasal bleeding or discharge. Mucous membranes pink and moist. NECK: Trachea midline. No JVD. CARDIOVASCULAR: Regular rate and rhythm. RESPIRATORY: No accessory muscle use. Clear to auscultation. Breath sounds equal bilaterally. GASTROINTESTINAL: Abdomen soft, non-tender, nondistended. Hepatic and splenic margins not palpable. MUSCULOSKELETAL: Extremities without clubbing, cyanosis, or edema. No obvious deformities. NEUROLOGICAL: Awake and alert. No obvious cranial nerve deficits. Motor grossly within normal limits. Five out of 5 muscle strength in the arms and legs. Normal speech. PSYCHIATRIC: Appropriate mood and affect; insight and judgment normal. Results - Labs CBC & Chem 7: 09/09/18 05:35 09/09/18 05:35 Laboratory Results - last 24 hr 09/08/18 09/08/18 09/08/18 11:59 12:16 12:16 CBC w Diff Auto diff final WBC 12.0 H RBC 4.31 L Hgb 13.9 Hct 41.4 MCV 96.1 MCH 32.3 MCHC 33.6 RDW 12.6 Plt Count 155 MPV 10.0 Neut % (Auto) 85.2 H Lymph % (Auto) 5.9 L [place] % (Auto) 7.9 Eos % (Auto) 0.1 Baso % (Auto) 0.9 Neut # (Auto) 10.2 H Lymph # (Auto) 0.7 L [place] # (Auto) 1.0 H Eos # (Auto) 0.0 Baso # (Auto) 0.1 WBC Differential . Differential Comment . Sodium 136 Potassium 4.7 Chloride 102 Carbon Dioxide 21.8 Anion Gap 12 BUN 39 H Creatinine 1.60 H Estimated GFR 41 L POC Glucose Greater than 600 H* Random Glucose 654 H* Calcium 8.2 L Total Bilirubin 0.5 AST 15 ALT 20 Alkaline Phosphatase 72 Total Creatine Kinase Troponin I 0.18 H Total Protein 6.7 Albumin 3.5 Ur Collection Type Urine Color Urine Clarity Urine pH Ur Specific [place] Urine Protein Urine Glucose (UA) Urine Ketones Urine Occult Blood Urine Nitrate Urine Bilirubin Urine Urobilinogen Ur Leukocyte Esterase Urine RBC Ur Squamous Epith Cells Micro UA Comment Ur Microscopic Review Urine Culture Comments 09/08/18 09/08/18 09/08/18 12:29 13:29 17:14 CBC w Diff WBC RBC Hgb Hct MCV MCH MCHC RDW Plt Count MPV Neut % (Auto) Lymph % (Auto) [place] % (Auto) Eos % (Auto) Baso % (Auto) Neut # (Auto) Lymph # (Auto) [place] # (Auto) Eos # (Auto) Baso # (Auto) WBC Differential Differential Comment Sodium Potassium Chloride Carbon Dioxide Anion Gap BUN Creatinine Estimated GFR POC Glucose Greater than 600 H* 532 H* Random Glucose Calcium Total Bilirubin AST ALT Alkaline Phosphatase Total Creatine Kinase Troponin I Total Protein Albumin Ur Collection Type Clean catch Urine Color Yellow Urine Clarity Clear Urine pH 5.5 Ur Specific [place] Less/equal 1.005 Urine Protein Negative Urine Glucose (UA) 1000 or greater H Urine Ketones Negative Urine Occult Blood Large H Urine Nitrate Negative Urine Bilirubin Negative Urine Urobilinogen 0.2 Ur Leukocyte Esterase Negative Urine RBC 15-50 H Ur Squamous Epith Cells 0-5 Micro UA Comment Culture not ind Ur Microscopic Review Microscopic reviewed Urine Culture Comments Culture not ind 09/08/18 09/08/18 09/09/18 18:11 20:49 05:35 CBC w Diff Auto diff final WBC 12.0 H RBC 4.28 L Hgb 13.6 Hct 39.9 MCV 93.3 MCH 31.7 MCHC 34.0 RDW 13.1 Plt Count 192 MPV 11.1 H Neut % (Auto) 75.3 H Lymph % (Auto) 14.1 [place] % (Auto) 8.0 Eos % (Auto) 2.0 Baso % (Auto) 0.6 Neut # (Auto) 9.0 H Lymph # (Auto) 1.7 [place] # (Auto) 1.0 H Eos # (Auto) 0.2 Baso # (Auto) 0.1 WBC Differential . Differential Comment . Sodium Potassium Chloride Carbon Dioxide Anion Gap BUN Creatinine Estimated GFR POC Glucose 122 H Random Glucose Calcium Total Bilirubin AST ALT Alkaline Phosphatase Total Creatine Kinase 109 Troponin I 0.19 H Total Protein Albumin Ur Collection Type Urine Color Urine Clarity Urine pH Ur Specific [place] Urine Protein Urine Glucose (UA) Urine Ketones Urine Occult Blood Urine Nitrate Urine Bilirubin Urine Urobilinogen Ur Leukocyte Esterase Urine RBC Ur Squamous Epith Cells Micro UA Comment Ur Microscopic Review Urine Culture Comments 09/09/18 09/09/18 05:35 07:45 CBC w Diff WBC RBC Hgb Hct MCV MCH MCHC RDW Plt Count MPV Neut % (Auto) Lymph % (Auto) [place] % (Auto) Eos % (Auto) Baso % (Auto) Neut # (Auto) Lymph # (Auto) [place] # (Auto) Eos # (Auto) Baso # (Auto) WBC Differential Differential Comment Sodium 138 Potassium 3.9 D Chloride 102 Carbon Dioxide 26.3 Anion Gap 10 BUN 28 H Creatinine 1.20 Estimated GFR 57 L POC Glucose 273 H Random Glucose 226 H D Calcium 8.5 Total Bilirubin 1.1 H AST 16 ALT 19 Alkaline Phosphatase 65 Total Creatine Kinase Troponin I Total Protein 6.8 Albumin 3.5 Ur Collection Type Urine Color Urine Clarity Urine pH Ur Specific [place] Urine Protein Urine Glucose (UA) Urine Ketones Urine Occult Blood Urine Nitrate Urine Bilirubin Urine Urobilinogen Ur Leukocyte Esterase Urine RBC Ur Squamous Epith Cells Micro UA Comment Ur Microscopic Review Urine Culture Comments Assessment and Plan - Assessment (1) Elevated troponin Code(s): R74.8 - Abnormal levels of other serum enzymes Status: Acute (2) Hyperglycemia Code(s): R73.9 - Hyperglycemia, unspecified Status: Acute - Plan 88 years with Diabetes type 2, uncontrolled blood glucose Hyperglycemia-Improving Continue high insulin sliding scale and basal insulin; Will Resume Humalog Elevated troponin I Denies any chest pain Cardiology consultation appreciated 2D echo pending Acute renal failure Improved with gentle IV fluid hydration and monitor BUN and creatinine Avoid all nephrotoxic drug Leukocytosis Monitor CBC Other chronic medical conditions Continue outpatient medications DVT prophylaxis: Bilateral SCDs Discharge patient to home Condition on discharge: Improved ADA Diet as tolerated Ad Melissa activity Rx written:None Follow-up with primary care physician Cardiology PRN
[2018-09-09 12:03] VITALS: BP 130/60; PULSE 63; TEMP 97; O2SAT 95
--- NOTE | 2018-09-09 12:03 | P.PNCA ---
Subjective Interval history: Denies chest pain or shortness of breath. In chair without distress Medications and Allergies Allergies Allergy/AdvReac Type Severity Reaction Status Date / Time No Known Allergies Allergy Verified 09/08/18 13:01 Home Medications Medication Instructions Recorded Confirmed Type aliskiren [Tekturna] 150 mg PO DAILY 09/08/18 09/08/18 History amlodipine 5 mg PO DAILY 09/08/18 09/08/18 History aspirin 325 mg PO DAILY 09/08/18 09/08/18 History atorvastatin 80 mg PO DAILY 09/08/18 09/08/18 History hydrochlorothiazide 12.5 mg PO DAILY 09/08/18 09/08/18 History insulin glargine [Lantus U-100 20 unit SUBCUT DAILY 09/08/18 09/08/18 History Insulin] isosorbide dinitrate 20 mg PO BID 09/08/18 09/08/18 History lisinopril 40 mg PO DAILY 09/08/18 09/08/18 History metoprolol succinate 12.5 mg PO DAILY 09/08/18 09/08/18 History pramipexole 0.5 mg PO DAILY 09/08/18 09/09/18 History ranitidine HCl 300 mg PO BID 09/08/18 09/08/18 History rivastigmine tartrate 6 mg PO BID 09/08/18 09/08/18 History pramipexole 0.5 mg PO DAILY 09/09/18 09/09/18 History Active Medications: Active Medications Acetaminophen (Tylenol) 650 mg PO Q4H PRN PRN Reason: Temp > 100.4 Last Admin: 09/09/18 04:54 Dose: 650 mg Al Hydroxide/Mg Hydroxide (Milk Of Magnjuan diego Liq) 30 ml PO Q12H PRN PRN Reason: Mild Constipation Aliskiren (Tekturna) 150 mg PO DAILY [facility] Last Admin: 09/09/18 09:56 Dose: 150 mg Amlodipine Besylate (Norvasc) 5 mg PO DAILY [facility] Last Admin: 09/09/18 08:23 Dose: 5 mg Aspirin (Aspirin) 325 mg PO DAILY [facility] Last Admin: 09/09/18 08:23 Dose: 325 mg Atorvastatin Calcium (Lipitor) 80 mg PO DAILY [facility] Last Admin: 09/09/18 08:24 Dose: 80 mg Dextrose (D50w Vial) 50 ml IV.PUSH UNSCH PRN PRN Reason: PER HYPOGLYCEMIA PROTOCOL Glucagon (Glucagon Inj) 1 mg OTHER PRN PRN PRN Reason: for Hypoglycemia Protocol Hydrochlorothiazide (Hydrodiuril) 12.5 mg PO DAILY [facility] Last Admin: 09/09/18 08:21 Dose: 12.5 mg Sodium Chloride (Ns Inj) 500 mls @ 0 mls/hr IV.SIG BOLUS [facility] Last Infusion: 09/08/18 13:31 Dose: Infused Sodium Chloride (1/2 Normal Saline Inj) 1,000 mls @ 75 mls/hr IV.CONT .[id number] [facility] Last Admin: 09/09/18 04:58 Dose: 75 mls/hr Insulin Aspart (Novolog Insulin Correctional Sugar Inj) 0 unit SQ ACHS [facility]; Protocol Last Admin: 09/09/18 08:25 Dose: 15 unit Insulin Detemir (Levemir Inj) 20 unit SQ DAILY [facility] Last Admin: 09/09/18 08:44 Dose: 20 unit Isosorbide Dinitrate (Isordil) 20 mg PO BID [facility] Last Admin: 09/09/18 08:21 Dose: 20 mg Lisinopril (Prinivil) 40 mg PO DAILY [facility] Last Admin: 09/09/18 08:24 Dose: 40 mg Metoprolol Succinate (Toprol Xl) 12.5 mg PO DAILY [facility] Last Admin: 09/09/18 08:22 Dose: 12.5 mg Ondansetron HCl (Zofran Inj) 4 mg IV.PUSH Q6H PRN PRN Reason: NAUSEA OR VOMITING Patient Own: ( Pramipexole E.R. [ Pramipexole] 4.5 Mg Tab) 0 each PO DAILY [facility] Patient Own: ( Rivastigmine Tartrate [ Rivastigmine Tartrate] 6 Mg) 0 each PO BID [facility] Sodium Chloride (Ns Flush) 2 ml IV.FLUSH PRN PRN PRN Reason: FLUSH AFTER USING IV ACCESS Physical Exam Vital signs: Vital Signs 09/08/18 12:55 09/08/18 13:30 09/08/18 13:45 Temperature 97.6 F Pulse Rate 76 70 69 Respiratory Rate 16 16 20 Blood Pressure 137/57 L 137/57 L 186/73 H Pulse Oximetry 96 97 09/08/18 16:00 09/08/18 22:00 09/09/18 00:00 Temperature 96.1 F L 97.2 F L 98.7 F Pulse Rate 61 84 81 Respiratory Rate 20 18 21 Blood Pressure 138/63 132/90 121/59 L Pulse Oximetry 97 97 92 L 09/09/18 05:44 09/09/18 08:00 Temperature 97.2 F L Pulse Rate 73 Respiratory Rate 20 16 Blood Pressure 137/63 Pulse Oximetry 97 Intake & Output 09/08/18 09/09/18 09/09/18 18:59 06:59 18:59 Intake Total 961 / 961 1240 / 1240 Balance 961 / 961 1240 / 1240 Weight 65.317 kg 72 kg Intake: IV 500 / 500 1000 / 1000 1/2 Normal Saline Inj 1,000 ML 1000 / 1000 @ 75 mls/hr IV.CONT .[id number] [facility] Rx#:[id number] NS Inj 500 ML @ Wide Open IV. 500 / 500 SIG BOLUS [facility] Rx#:[id number] Oral 461 / 461 240 / 240 Other: # Voids 4 Date of Last Bowel Movement 09/08/18 09/08/18 # Bowel Movements 0 - Constitutional no acute distress - Routine HEENT Exam Head: Present: normocephalic, atraumatic Eye: Present: EOMI ENT: Present: mucous membranes moist - Routine Neck Exam Present: supple - Routine Respiratory Exam Present: CTA bilaterally - Routine Cardiovascular Exam Present: RRR, S1, S2 - Routine Abdominal Exam Present: soft, normoactive bowel sounds - Routine Extremities Exam Present: pulses intact, normal capillary refill. Absent: cyanosis, edema - Routine Skin Exam Present: intact, dry, warm - Routine Neurological Exam Present: alert, oriented X3 - Routine Psychiatric Exam Present: normal affect Results 09/09/18 05:35 09/09/18 05:35 Cardiac Enzymes 09/08/18 09/08/18 09/09/18 Range/Units 12:16 18:11 05:35 AST 15 16 (15-37) U/L Troponin I 0.18 H 0.19 H (0.02-0.05) ng/mL CBC 09/08/18 09/09/18 Range/Units 12:16 05:35 WBC 12.0 H 12.0 H (4.0-11.0) th/mm3 RBC 4.31 L 4.28 L (4.50-5.90) mil/mm3 Hgb 13.9 13.6 (13.0-17.0) gm/dL Hct 41.4 39.9 (39.0-51.0) % Plt Count 155 192 (150-450) th/mm3 Neut # (Auto) 10.2 H 9.0 H (1.8-7.7) th/mm3 Lymph # (Auto) 0.7 L 1.7 (1.0-4.8) th/mm3 [place] # (Auto) 1.0 H 1.0 H (0.0-0.9) th/mm3 Eos # (Auto) 0.0 0.2 (0.0-0.4) th/mm3 Baso # (Auto) 0.1 0.1 (0.0-0.2) th/mm3 Comprehensive Metabolic Panel 09/08/18 09/09/18 Range/Units 12:16 05:35 Sodium 136 138 (136-145) meq/L Potassium 4.7 3.9 D (3.5-5.1) meq/L Chloride 102 102 (98-107) meq/L Carbon Dioxide 21.8 26.3 (21.0-32.0) meq/L BUN 39 H 28 H (7-18) mg/dL Creatinine 1.60 H 1.20 (0.60-1.30) mg/dL Calcium 8.2 L 8.5 (8.5-10.1) mg/dL AST 15 16 (15-37) U/L ALT 20 19 (12-78) U/L Alkaline Phosphatase 72 65 (45-117) U/L Total Protein 6.7 6.8 (6.4-8.2) g/dL Albumin 3.5 3.5 (3.4-5.0) g/dL Intake and Output 09/08/18 09/09/18 09/09/18 22:59 06:59 14:59 Intake Total 461 / 461 1240 / 1240 Balance 461 / 461 1240 / 1240 Intake: IV 1000 / 1000 1/2 Normal Saline Inj 1,000 ML 1000 / 1000 @ 75 mls/hr IV.CONT .[id number] [facility] Rx#:[id number] Oral 461 / 461 240 / 240 Other: # Voids 4 Date of Last Bowel Movement 09/08/18 09/08/18 # Bowel Movements 0 Weight 72 kg 72 kg - Imaging and Cardiology EKG results: report reviewed, image reviewed - EKG Interpretation EKG: no acute changes Assessment and Plan - Plan 1. Elevated Troponin-no acute changes in EKG. Continue metoprolol, asa, isosorbide. Asymptomatic and further W/U as outpt. 2. Hypertension-continue amlodipine, asa, HCTZ, isosorbide, lisinopril, metoprolol 3. Hyperlipidemia-continue atorvastatin Discussed Condition With: patient and .
--- NOTE | 2018-09-09 12:33 | ECG ---
Date Performed: 09/09/2018 Time Performed: 10:36:45 PTAGE: 88 years EKG: Sinus rhythm WITH FIRST DEGREE AV BLOCK LEFT BUNDLE BRANCH BLOCK ABNORMAL ECG PREVIOUS TRACING : 09/08/2018 18.03 No significant change from previous tracing noted. DOCTOR: George Nuñez Interpretating Date/Time 09/09/2018 12:30:42
== END 2018-09-09 16:25 | disposition home or self-care (01) ==
LOC: PHEDA 11:46 → PHED 11:46 → PH3 13:35
PROVIDERS: ADMIT Hospitalist; ATTEND Hospitalist